=== PATIENT | male | born 2000 | race Two or more races ===

== ENCOUNTER 2019-12-23 23:03 | Emergency (ER) | payer OTHER ==
[~2019-12-23] VITALS: Ht 177.8 cm; Wt 97.5 kg
[2019-12-24 03:25] VITALS: BP 141/95
== END 2019-12-24 03:12 | disposition home or self-care (01) ==
LOC: ER 23:15
DX: S80.01XA Contusion of right knee, initial encounter (principal); V49.3XXA Car occupant (driver) (passenger) injured in unspecified nontraffic accident, initial encounter; Y93.89 Activity, other specified; Y92.89 Other specified places as the place of occurrence of the external cause; Y99.8 Other external cause status
CPT/HCPCS: 73562; 73700